=== PATIENT | male | born 1945 | race Caucasian/White ===

== ENCOUNTER 2022-12-01 13:34 | Inpatient (IN) | payer OTHER ==
[~2022-12-01] VITALS: Ht 152.4 cm; Wt 54.2 kg
[2022-12-01 13:39] VITALS: BP_SYST 124
--- NOTE | 2022-12-01 14:17 | NUR ---
ER DR. ORTEGA EXAMINING PT
--- NOTE | 2022-12-01 14:20 | NUR ---
Placed in room 05 . Placed on compliance monitor, blood pressure machine and pulse oximeter. To gown for exam. Side rails up. Report given to JOY CARTER AND ANGELINA FLORES.
--- NOTE | 2022-12-01 15:00 | NUR ---
[facility]GB-[facility].9. PT AWAKE, ALERT, ORIENTED X3, IN NAD. SLURRED SPEECH NOTED-PT ADMITS TO HAVING A PREVIOUS STROKE WITH RESIDUAL HEMIPLEGIA TO RIGHT SIDE OF BODY. RESP EVEN AND UNLABORED, ON RA @95%. DENIES ANY SOB OR CP. SKIN W/D.PALE. CAP REFILL>3SEC. PT VERBALIZES HE DOES NOT HAVE ANY PAIN AND DENIES ANY BLEEDING. ABD ROUND/SOFT, NT TO PALPATION, DENIES RECTAL BLEEDING. PT STATES HE'S HAD LOW HGB BEFORE BUT HAS ALWAYS REFUSED BLOOD TRANSFUSIONS, STATES "IM SCARED OF BLOOD GETTING INTO MY BODY" PT REASSURED OF SAFETY PROTOCOLS IN PLACE IN HAVING BLOOD TRANSFUSIONS IN HOSPITAL. VERBALIZED UNDERSTANDING. RAMON FOR ER MD RICHARDSON, SAFETY PRECAUTIOSN IN PLACE, WILL CONT TO MONITOR. VSS, ON TELE MONITOR.
[2022-12-01 15:19] LABS: BASOPHILS % (AUTO) 0.8 % (0.0-2.0); EOSINOPHILS % (AUTO) 1.5 % (0.0-4.0); LYMPHOCYTES # (AUTO) 0.8 K/uL (1.0-5.5); LYMPHOCYTES % (AUTO) 31.4 % (20.5-51.5); MEAN CORPUSCULAR HEMOGLOBIN 36 pg (27-31); MEAN CORPUSCULAR HGB CONC 35 % (32-36); MEAN CORPUSCULAR VOLUME 103 fL (79.0-98.0); MONOCYTES # (AUTO) 0.2 K/uL (0.0-1.0); MONOCYTES % (AUTO) 6.7 % (1.7-9.3); NEUTROPHILS # (AUTO) 1.6 K/uL (1.8-7.7); NEUTROPHILS % (AUTO) 59.6 % (40.0-70.0); PLATELET COUNT (AUTO) 272 K/uL (130-430); RED CELL DISTRIBUTION WIDTH 25.4 % (9.0-15.0); WHITE BLOOD COUNT (AUTO) 2.6 K/uL (4.8-10.8)
[2022-12-01 15:22] LABS: RED BLOOD CELL COUNT(AUTO) 1.43 MIL/uL (4.2-6.2)
[2022-12-01 15:24] LABS: HEMATOCRIT 14.7 % (36-54); HEMOGLOBIN 5.1 g/dL (14.0-18.0)
[2022-12-01 15:26] LABS: ANION GAP 5 (5-15); CALCIUM 8.3 mg/dL (8.4-11.0); CHLORIDE 97 mmol/L (98-107); CREATININE 0.91 mg/dL (0.55-1.30); GLUCOSE 126 mg/dL (70-99); UREA NITROGEN, BLOOD 16 mg/dL (8-21)
[2022-12-01 15:38] LABS: PROTHROMBIN TIME 10.5 SECS (9.5-12.5)
[2022-12-01 15:39] LABS: ALANINE AMINOTRANSFERASE 13 U/L (12-78); ALBUMIN 3.2 g/dL (3.4-4.8); AMYLASE 82 U/L (0-100); ASPARTATE AMINOTRANSFERASE 21 U/L (10-37); LIPASE 179 U/L (73-393); TOTAL BILIRUBIN 0.4 mg/dL (0.0-1.0)
--- NOTE | 2022-12-01 17:01 | NUR ---
Admit bed requested Patient will be admitted to care of . Admitted to [facility] unit. Diagnosis GI BLEED, ANEMIA Inpatient (Yes or No) YES Observation (Yes or No) NO Orientation concerns or request close to nursing station (Yes or No) NO Covid Status NEGATIVE On vent or bipap NO Isolation requirements NO Needs a sitter NO From Home (Yes or if No enter name of facility) [facility] Requires Dialysis (Yes or No) YES Med Rec Completed (Yes of No) YES
[2022-12-01] MEDS ORDERED: ACET325T PO (17:13)
[2022-12-01] MEDS ORDERED: GUAI100S14 PO (17:13)
[2022-12-01] MEDS ORDERED: PRO40 PO (17:13)
[2022-12-01] MEDS ORDERED: DOCU-144 PO (17:13)
[2022-12-01] MEDS ORDERED: AMLO5TAB4 PO (17:13)
[2022-12-01] MEDS ORDERED: FERR236T3 PO (17:13)
[2022-12-01] MEDS ORDERED: BISA-79 PO (17:13)
[2022-12-01] MEDS ORDERED: MOM PO (17:13)
[2022-12-01] MEDS ORDERED: LIP40 PO (17:13)
[2022-12-01] MEDS ORDERED: LACT1TAB21 PO (17:13)
[2022-12-01] MEDS ORDERED: CARV3.1246 PO (17:13)
[2022-12-01] MEDS ORDERED: LACT10SO6 PO (17:13)
--- NOTE | 2022-12-01 17:14 | NUR ---
Medication reconciliation completed with information provided by JEN REHMAN. Any prior medication reconciliation on file was reviewed and corrected.
--- NOTE | 2022-12-01 17:51 | NUR ---
Consent signed per Patient Kenya Peacock agreeing to administration of blood. Blood has been type and crossmatched. Blood sent from blood bank. Information on unit of blood checked against patient wristband at bedside by two nurses. All information matches. Patient or responsible alliance party informed of potential complications associated with blood transfusion. Informed of possible transfusion reaction symptoms. Aware of need to notify nurse at once of itching, shortness of breath, flushing, feeling of impending doom, or other symptoms not previously present. Vital signs taken within 5 minutes prior to initiation of transfusion. RN will remain with patient for first 15 minutes of transfusion at which time vital signs will be re-assessed.
--- NOTE | 2022-12-01 18:12 | NUR ---
REPORT GIVEN TO GUS HAMILTON, UPDATED ON STATUS.
--- NOTE | 2022-12-01 18:49 | NUR ---
Patient will be admitted to care of DR CENTENO. Admitted to unit. Will go to room . Belongings list completed. Complete and up to date summary report printed. SBAR report to be given at bedside with opportunity for questions.
[2022-12-01 18:52] VITALS: BP_SYST 131
--- NOTE | 2022-12-01 19:00 | NUR ---
Pt arrived to the unit at 1835 from the ER. 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 VSS at this time and is med surg status. Skin is intact and pale. Pt currently has PRBC infusing into left AC 18G for hemoglobin of 5.1. Admission will be completed on second shift supervisor.
[2022-12-01 20:00] VITALS: BP_SYST 131
[2022-12-01] MEDS: PANTOPRAZOLE SODIUM 40 MG/VIAL (PROTONIX) IVP SCH (21:00)
[2022-12-02 01:04] VITALS: BP_SYST 123
--- NOTE | 2022-12-02 01:38 | NUR ---
Consultation Paged Reason for Consultation: GI Bleed Was consult called: Y Person who was notified: Bethany Consulting Physician: Dr. Bolivar Ordering Physician: Dr. Keith
--- NOTE | 2022-12-02 04:37 | NUR ---
Blood transfusions completed and tolerated well without any reaction
[2022-12-02 07:10] LABS: BASOPHILS % (AUTO) 0.6 % (0.0-2.0); EOSINOPHILS # (AUTO) 0.1 K/uL (0.0-0.4); EOSINOPHILS % (AUTO) 1.8 % (0.0-4.0); HEMATOCRIT 26.6 % (36-54); HEMOGLOBIN 9.5 g/dL (14.0-18.0); LYMPHOCYTES # (AUTO) 0.8 K/uL (1.0-5.5); MEAN CORPUSCULAR HEMOGLOBIN 34 pg (27-31); MEAN CORPUSCULAR HGB CONC 36 % (32-36); MEAN CORPUSCULAR VOLUME 95 fL (79.0-98.0); MONOCYTES # (AUTO) 0.2 K/uL (0.0-1.0); MONOCYTES % (AUTO) 6.3 % (1.7-9.3); NEUTROPHILS # (AUTO) 2.3 K/uL (1.8-7.7); NEUTROPHILS % (AUTO) 68.3 % (40.0-70.0); PLATELET COUNT (AUTO) 217 K/uL (130-430); RED CELL DISTRIBUTION WIDTH 19.1 % (9.0-15.0); WHITE BLOOD COUNT (AUTO) 3.3 K/uL (4.8-10.8)
[2022-12-02 07:30] VITALS: BP_SYST 117; BP_SYST 145
--- NOTE | 2022-12-02 07:30 | NUR ---
OPENING NOTE Patient in bed resting. A/O x 4, Croatian speaking. No pain, no SOB, no distress at this time. Breathing even and unlabored on RA. NO IV Access. All needs met at this time. Bed locked in lowest position, Call light within reach. Will continue to monitor.
[2022-12-02 07:34] LABS: ALANINE AMINOTRANSFERASE 13 U/L (12-78); ALBUMIN 3.2 g/dL (3.4-4.8); ANION GAP 7 (5-15); ASPARTATE AMINOTRANSFERASE 14 U/L (10-37); CALCIUM 8.5 mg/dL (8.4-11.0); CHLORIDE 99 mmol/L (98-107); CREATININE 0.82 mg/dL (0.55-1.30); GLUCOSE 108 mg/dL (70-99); TOTAL BILIRUBIN 1.6 mg/dL (0.0-1.0); UREA NITROGEN, BLOOD 14 mg/dL (8-21)
[2022-12-02] MEDS: PANTOPRAZOLE SODIUM 40 MG/VIAL (PROTONIX) IVP SCH ×2 (09:00→21:30)
--- NOTE | 2022-12-02 10:53 | NUR ---
DAUGHTER BART SPOKE WITH DAUGHTER REGARDING PATIENT STATUS AND INFORMED HER THAT PATIENT IS REFUSING CARE AND WANTS TO BE DISCHARGED. DAUGHTER STATED SHE WILL COME SEE PATIENT.
[2022-12-02 11:35] VITALS: BP_SYST 123
--- NOTE | 2022-12-02 12:08 | NUR ---
[facility] LEFT VOICEMAIL WITH [facility] REGARDING PATIENTS TRANSFER DUE TO PATIENTS DISCHARGE. AWAITING A CALL BACK.
--- NOTE | 2022-12-02 12:19 | NUR ---
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
--- NOTE | 2022-12-02 13:18 | NUR ---
PATIENT FAMILY PATIENTS FAMILY AT BEDSIDE. PATIENT AGREED TO STAY INSTEAD OF BEING DISCHARGED BACK HOME. PAGED MD CENTENO TO INFORM HIM.
--- NOTE | 2022-12-02 13:20 | NUR ---
MD CENTENO Spoke with MD Centeno regarding patient wanting to stay and do test for the possible GI bleed. MD Centeno asked to page MD Bolivar. MD Bolivar was paged. Awaiting call back.
--- NOTE | 2022-12-02 14:19 | NUR ---
MD BOLIVAR Spoke with MD Bolivar and received new orders for colonoscopy and EGD.
[2022-12-02] MEDS ORDERED: BISACODYL 5 MG TABLET.DR (DULCOLAX) PO ONE (15:00)
[2022-12-02 15:51] VITALS: BP_SYST 115
[2022-12-02] MEDS ORDERED: GOLYTELY / COLYTE SOLUTION 4 LITERS PO ONE (16:00)
--- NOTE | 2022-12-02 16:00 | NUR ---
ROUNDS: Patient in bed resting. Started on GOLYTE for colonoscopy/EGD tomorrow. No pain, no SOB, no distress at this time. Breathing even and unlabored on RA. All needs met at this time. Bed locked in lowest position, Call light within reach. Will continue to monitor.
--- NOTE | 2022-12-02 18:44 | NUR ---
CLOSING NOTE Patient in bed resting. A/O x 4, Turkmen speaking. No pain, no SOB, no distress at this time. Breathing even and unlabored on RA. IV TO RFA 22G patent on SL. Patient on GoLytle for pending colonoscopy/EGD. All needs met at this time. Bed locked in lowest position, Call light within reach. Will endorse to shift leader nurse.
[2022-12-02 19:00] VITALS: BP_SYST 119
--- NOTE | 2022-12-02 19:30 | NUR ---
PATIENT RESTING IN BED COMFORTABLY. BED LOCKED AT LOWEST POSITION, SIDE RAILS UP, CALL LIGHT WITHIN REACH. PATIENT DENIES PAIN, SOB, OR DISCOMFORT AT THIS TIME. WILL CONTINUE TO MONITOR.
[2022-12-03] VITALS (8 sets, daily range): BP systolic 103–131
--- NOTE | 2022-12-03 07:14 | NUR ---
0600:TAP WATER ENEMA DONE, PATIENT TOLERATED WELL. STOOL IS CLEAR GREEN COLOR. 0630: SPOKE TO DR MULLER AND INFORMED HIM PATIENT STILL HAS 1/4 OF THE GOLYTELY LEFT AND POST ENEMAL THE STOOL IS STILL CLEAR GREEN. PER DOCTOR, HAVE PATIENT FINISH REMAINING GOLYTELY. WILL ENDORSE TO MORNING NURSE.
--- NOTE | 2022-12-03 08:00 | NUR ---
OPENING NOTES PATIENT IS AOX3. NO SS OF DISTRESS NOTED. BREATHING IS EVEN AND NONLABORED, ON ROOM AIR. NO SOB NOTED. PATIENT DENIES PAIN. VITAL SIGNS OBTAINED, DOCUMENTED. IV PATENT. PATIENT TO HAVE COLONOSCOPY AT 1100. BED IS LOCKED, ALARM ON, AND AT LOWEST POSITION. CALL LIGHT WITHIN REACH.
--- NOTE | 2022-12-03 09:30 | NUR ---
NOTES PATIENT FINISHED GOLYTELY. HAD LOOSE LIGHT GREEN COLO STOOL. PATIENT HAS BEEN CLEANED AND LINENS CHANGED. DENIES ABD PAIN. DENIES NAUSEA. SAFETY PRECAUTIONS IN PLACE AND CALL LIGHT WITHIN REACH.
[2022-12-03] MEDS: PANTOPRAZOLE SODIUM 40 MG/VIAL (PROTONIX) IVP SCH (10:05)
[2022-12-03 11:12] LABS: BASOPHILS % (AUTO) 0.5 % (0.0-2.0); EOSINOPHILS % (AUTO) 0.8 % (0.0-4.0); HEMATOCRIT 31.6 % (36-54); HEMOGLOBIN 10.7 g/dL (14.0-18.0); LYMPHOCYTES # (AUTO) 0.6 K/uL (1.0-5.5); LYMPHOCYTES % (AUTO) 22.8 % (20.5-51.5); MEAN CORPUSCULAR HEMOGLOBIN 33 pg (27-31); MEAN CORPUSCULAR HGB CONC 34 % (32-36); MEAN CORPUSCULAR VOLUME 96 fL (79.0-98.0); MONOCYTES # (AUTO) 0.1 K/uL (0.0-1.0); MONOCYTES % (AUTO) 4.2 % (1.7-9.3); NEUTROPHILS # (AUTO) 1.9 K/uL (1.8-7.7); PLATELET COUNT (AUTO) 134 K/uL (130-430); RED BLOOD CELL COUNT(AUTO) 3.28 MIL/uL (4.2-6.2); RED CELL DISTRIBUTION WIDTH 20.9 % (9.0-15.0)
[2022-12-03 11:27] LABS: ALANINE AMINOTRANSFERASE 13 U/L (12-78); ALBUMIN 3.5 g/dL (3.4-4.8); ANION GAP 9 (5-15); ASPARTATE AMINOTRANSFERASE 15 U/L (10-37); CALCIUM 8.8 mg/dL (8.4-11.0); CHLORIDE 99 mmol/L (98-107); CREATININE 0.72 mg/dL (0.55-1.30); GLUCOSE 111 mg/dL (70-99); TOTAL BILIRUBIN 0.8 mg/dL (0.0-1.0); UREA NITROGEN, BLOOD 10 mg/dL (8-21)
[2022-12-03] MEDS ORDERED: MIDAZOLAM HCL 5 MG/5 ML VIAL ONE (11:36)
[2022-12-03] MEDS ORDERED: MEPERIDINE HCL/PF 25 MG/ML DISP.SYRIN ONE (11:36)
[2022-12-03] MEDS ORDERED: SIMETHICONE 40 MG/0.6 ML ML ONE (11:36)
--- NOTE | 2022-12-03 11:36 | NUR ---
NOTES PATIENT LEFT UNIT FOR PROCEDURE.
[2022-12-03 11:45] LABS: WHITE BLOOD COUNT (AUTO) 2.7 K/uL (4.8-10.8)
[2022-12-03 12:15] LABS: NEUTROPHILS % (AUTO) 71.7 % (40.0-70.0)
--- NOTE | 2022-12-03 12:49 | NUR ---
NOTES PATIENT RETURNED FROM PROCEDURE. AWAKE AND ALERT. DENIES PAIN. NO SOB NOTED, NO DISTRESS NOTED. VITAL SIGNS OBTAINED, DOCUMENTED. SAFETY PRECAUTIONS IN PLACE AND CALL LIGHT WITHIN REACH.
--- NOTE | 2022-12-03 13:53 | NUR ---
Patient has a bed at [facility] where he came from Bed 7B Please call [phone] for report [facility] will tile picker patient at [phone] Please call me if any questions [phone] Thank you Lucila
[2022-12-03 14:06] LABS: FOLATE (FOLIC ACID) 12.5 ng/mL (>3.0)
--- NOTE | 2022-12-03 14:46 | NUR ---
report called [facility], spoke to JOY Matta. Report given. Spoke to daughter Tracey Peacock, daughter aware of transfer back to facility. [facility] at [phone]. ETA 1530.
--- NOTE | 2022-12-03 17:00 | NUR ---
D/C Patient Patient given medication reconciliation form and D/C instructions. Exit Care provided. Patient verbalized understanding. MD discussed with patient the results and treatment provided. Patient discharged to [facility] via ambulance.. Patient in stable condition, ID band removed. IV catheter removed, intact and dressing applied, no active bleeding. Rx of given. Patient educated on pain management. All belongings sent with patient.
== END 2022-12-03 16:45 | DRG 393 ==
LOC: SED 13:34 → SMU 16:36
PROVIDERS: ADMIT Family Medicine; ATTEND Family Medicine
PROC: 30233N1 Transfusion of Nonautologous Red Blood Cells into Peripheral Vein, Percutaneous Approach (ICD-10-PCS; principal; 2022-12-01)
PROC: 0DJD8ZZ Inspection of Lower Intestinal Tract, Via Natural or Artificial Opening Endoscopic (ICD-10-PCS; 2022-12-03)
PROC: 0DB98ZX Excision of Duodenum, Via Natural or Artificial Opening Endoscopic, Diagnostic (ICD-10-PCS; 2022-12-03 11:00)
DX: K64.8 Other hemorrhoids (principal); K29.71 Gastritis, unspecified, with bleeding; D62 Acute posthemorrhagic anemia; K62.6 Ulcer of anus and rectum; G81.90 Hemiplegia, unspecified affecting unspecified side; E78.5 Hyperlipidemia, unspecified; I10 Essential (primary) hypertension; E78.00 Pure hypercholesterolemia, unspecified; Z20.822 Contact with and (suspected) exposure to COVID-19
CPT/HCPCS: 36415; 43239; 45378; 71045; 80053; 82150; 82607; 82746; 83605; 83690; 85025; 85610-TC; 85730-TC; 86886; 86900; 86901; 86920; 87081; 88305; 88312; 88313; 93005; 99285; C9113; J2175; J2250; P9021